=== PATIENT | male | born 1995 | race Two or more races ===

== ENCOUNTER 2021-11-12 17:21 | Emergency (ER) | payer OTHER ==
[~2021-11-12] VITALS: Ht 177.8 cm; Wt 77.1 kg
[2021-11-12] MEDS ORDERED: methylPREDNISolone SOD SUCC 125 MG/2 ML VL ONE (17:23)
[2021-11-12] MEDS ORDERED: methylPREDNISolone SOD SUCC 125 MG/2 ML VL IV ONE (17:30)
[2021-11-12] MEDS ORDERED: IPRATROPIUM BROM 0.5 MG/2.5ML INH SOL NEB ONE (18:45)
[2021-11-12] MEDS ORDERED: ALBUTEROL SULF 2.5 MG/0.5ML(0.5%) NEB SOLN NEB ONE (18:45)
[2021-11-12] MEDS ORDERED: MAGNESIUM SULFATE 1GM/100ML 100 ML IV ONE (21:15)
[2021-11-12] MEDS ORDERED: ALB2.5IS NEB (21:22)
[2021-11-12] MEDS ORDERED: PRED20TA2 PO (21:26)
[2021-11-12 21:59] LABS: Basophils # (auto) 0 10 ^3/uL (0-0.2); Basophils % (auto) 0.2 % (0.0-2.0); Eosinophils # (auto) 0 10 ^3/uL (0-0.8); Hemoglobin 15.9 g/dL (13.5-17.5); Lymphocytes # (auto) 0.4 10 ^3/uL (0.4-5.4); Lymphocytes % (auto) 3.1 % (10.0-50.0); Mean Corpuscular Hemoglobin 29.4 pg (28.0-32.0); Mean Corpuscular Hgb Conc. 33.9 g/dL (32.0-36.0); Mean Corpuscular Volume 86.7 fL (80.0-100.0); Monocytes # (auto) 0.1 10 ^3/uL (0-1.3); Monocytes % (auto) 0.6 % (0.0-12.0); Neutrophils % (auto) 96.1 % (37.0-80.0); Red Blood Cells 5.42 10^6/uL (4.5-5.90); Red Cell Distribution Width 12.8 % (11.8-14.3); White Blood Cell 13.5 10^3/uL (4.4-10.8)
[2021-11-12 22:13] LABS: Albumin 3.9 g/dL (3.4-5.0); Calcium 8.2 mg/dL (8.5-10.1); Potassium 3.9 mmol/L (3.5-5.1)
[2021-11-12 22:16] LABS: BUN/Creatinine Ratio 22.8; Bilirubin, Total 0.4 mg/dL (0.2-1.0); Total Protein 7.6 g/dL (6.4-8.2)
[2021-11-12 23:15] VITALS: BP 131/88
== END 2021-11-12 23:17 | disposition home or self-care (01) ==
LOC: ER 17:21
DX: J45.909 Unspecified asthma, uncomplicated (principal); F17.210 Nicotine dependence, cigarettes, uncomplicated
CPT/HCPCS: 36415; 36600; 71046; 80053; 82805; 85025; 94644; 96365; 96375; 99285; J2930; J3475; 94640

== ENCOUNTER 2023-06-24 15:18 | Emergency (ER) | payer BC ==
[~2023-06-24] VITALS: Ht 170.2 cm; Wt 87.6 kg
[~2023-06-24 15:18] MED LIST: ALB2.5IS NEB; PRED20TA2 PO
[2023-06-24] MEDS ORDERED: ALBUTEROL SULF 2.5 MG/0.5ML(0.5%) NEB SOLN NEB ONE (16:00)
[2023-06-24] MEDS ORDERED: methylPREDNISolone SOD SUCC 40 MG/ML VL IM ONE (16:00)
[2023-06-24] MEDS ORDERED: IPRATROPIUM BROM 0.5 MG/2.5ML INH SOL NEB ONE (16:00)
[2023-06-24] MEDS ORDERED: PRED20TA2 PO (16:19)
[2023-06-24] MEDS ORDERED: ALBU108A5 IN (16:19)
[2023-06-24 16:26] VITALS: BP 132/76; PULSE 104; TEMP 97.6
[2023-06-24 16:38] VITALS: RESP 16; O2SAT 93
== END 2023-06-24 16:55 | disposition home or self-care (01) ==
LOC: ER 15:18
DX: J45.901 Unspecified asthma with (acute) exacerbation (principal); F17.210 Nicotine dependence, cigarettes, uncomplicated; Z76.0 Encounter for issue of repeat prescription
CPT/HCPCS: 94640; 96372; 99283; J2920; J7644